=== PATIENT | female | born 1990 | race Caucasian/White ===

== ENCOUNTER 2017-01-12 07:21 | Inpatient (IN) | payer OTHER ==
[2017-01-12] VITALS (8 sets, daily range): BP systolic 99–125; BP diastolic 56–82
[~2017-01-12] VITALS: Ht 152.4 cm; Wt 63.6 kg
[2017-01-12 08:22] LABS: EOSINOPHIL (%) 1.1 % (0-5); EOSINOPHIL COUNT 0.1 K/uL (0-0.3); HEMATOCRIT 33.7 % (36.0-46.0); IMMATURE GRANULOCYTE (%) 0.5 % (0.0-0.7); IMMATURE GRANULOCYTE COUNT 0.1 K/uL; INSTRUMENT ABS NEUTROPHIL CT 6.7 K/uL; LYMPHOCYTE COUNT 2.6 K/uL (1.0-2.8); MCH 25.7 PG (29.0-34.0); MCHC 31.8 G/DL (30.0-36.0); MEAN PLAT.VOLUME 15.1 uM^3 (9.5-12.4); MONOCYTE COUNT 0.6 K/uL (0-0.8); NEUTROPHIL (%) 66.8 % (45-76); NEUTROPHIL COUNT 6.7 K/uL (1.8-6.4); PLATELET COUNT 128 K/uL (156-360); RBC DIS.WIDTH-CV 14.1 % (11.8-14.6); RED BLOOD COUNT 4.16 M/uL (3.80-5.20); WHITE BLOOD COUNT 10.1 K/uL (4.1-10.2)
[2017-01-12 10:41] LABS: AMPHETAMINES QUANT VALUE 0 NG/ML; BARBITUATES QUANT VALUE 0 NG/ML; BENZODIAZEPINES QUANT VALUE 0 NG/ML; BENZODIAZEPINES, URINE SCREEN Negative (200 ng/mL); OPIATES QUANTITATIVE VALUE 0 NG/ML; PHENCYCLIDINE QUANT VALUE 0 NG/ML
[2017-01-13 07:41] VITALS: BP 120/70
[2017-01-13 14:24] LABS: EOSINOPHIL (%) 0.8 % (0-5); EOSINOPHIL COUNT 0.1 K/uL (0-0.3); HEMATOCRIT 34.1 % (36.0-46.0); IMMATURE GRANULOCYTE (%) 0.6 % (0.0-0.7); IMMATURE GRANULOCYTE COUNT 0.1 K/uL; INSTRUMENT ABS NEUTROPHIL CT 5.5 K/uL; LYMPHOCYTE COUNT 2.5 K/uL (1.0-2.8); MCH 26.1 PG (29.0-34.0); MCV 81.8 FL (83-99); MEAN PLAT.VOLUME 14.2 uM^3 (9.5-12.4); MONOCYTE (%) 4.9 % (3-12); MONOCYTE COUNT 0.4 K/uL (0-0.8); NEUTROPHIL (%) 64.2 % (45-76); NEUTROPHIL COUNT 5.5 K/uL (1.8-6.4); PLATELET COUNT 145 K/uL (156-360); RBC DIS.WIDTH-CV 14.2 % (11.8-14.6); RBC DIS.WIDTH-SD 41.2 % (39-53); RED BLOOD COUNT 4.17 M/uL (3.80-5.20); WHITE BLOOD COUNT 8.6 K/uL (4.1-10.2)
[2017-01-13 15:44] VITALS: BP 119/78
== END 2017-01-13 17:45 | disposition home or self-care (01) | DRG 774 ==
LOC: LDRP-OP 07:21 → 2WEST 07:22 → LDRP-OP 02-13 18:40
PROVIDERS: Advanced Practice Midwife
DX: O99.334 Smoking (tobacco) complicating childbirth (principal); Z37.0 Single live birth; O70.0 First degree perineal laceration during delivery; Z3A.39 39 weeks gestation of pregnancy; O98.82 Other maternal infectious and parasitic diseases complicating childbirth; N76.0 Acute vaginitis; E66.3 Overweight; Z68.27 Body mass index [BMI] 27.0-27.9, adult
CPT/HCPCS: 80306 90; 85025; 85025 91; 87480; 87510; 87660; J7120

== ENCOUNTER 2017-06-17 10:54 | Emergency (ER) | payer OTHER ==
[~2017-06-17] VITALS: Ht 152.4 cm; Wt 49.2 kg
[2017-06-17 13:53] LABS: EOSINOPHIL (%) 0.1 % (0-5); HEMATOCRIT 38.1 % (36.0-46.0); IMMATURE GRANULOCYTE (%) 0.3 % (0.0-0.7); INSTRUMENT ABS NEUTROPHIL CT 6.4 K/uL; LYMPHOCYTE COUNT 1.1 K/uL (1.0-2.8); MCH 26.2 PG (29.0-34.0); MCV 81.8 FL (83-99); MEAN PLAT.VOLUME 12.1 uM^3 (9.5-12.4); MONOCYTE (%) 4.8 % (3-12); MONOCYTE COUNT 0.4 K/uL (0-0.8); NEUTROPHIL (%) 80.6 % (45-76); NEUTROPHIL COUNT 6.4 K/uL (1.8-6.4); PLATELET COUNT 246 K/uL (156-360); RBC DIS.WIDTH-CV 16.6 % (11.8-14.6); RBC DIS.WIDTH-SD 49.2 % (39-53); RED BLOOD COUNT 4.66 M/uL (3.80-5.20); WHITE BLOOD COUNT 7.9 K/uL (4.1-10.2)
[2017-06-17 14:05] LABS: CHLORIDE 108 mEq/L (99-109); POTASSIUM 4.5 mEq/L (3.7-5.4); SODIUM 143 mEq/L (136-147)
[2017-06-17 14:07] LABS: GLUCOSE 94 mg/dL (70-99)
[2017-06-17 14:08] LABS: ANION GAP 12 MEQ/L (2-14)
[2017-06-17 14:09] LABS: TOTAL BILIRUBIN 0.9 mg/dL (0.0-1.0)
[2017-06-17 14:10] LABS: ALKALINE PHOSPHATASE 132 IU/L (3-129)
[2017-06-17 14:11] LABS: GFR ESTIMATE (CALCULATED) > 59 mL/min/
[2017-06-17 14:12] LABS: UREA NITROGEN (BUN) 10 mg/dL (9-23)
[2017-06-17] MEDS ORDERED: MOTRIN800 MG PO (15:22)
[2017-06-17] MEDS ORDERED: CLEOCIN300 MG PO (15:22)
[2017-06-17 16:27] VITALS: BP 113/61
== END 2017-06-17 16:29 ==
LOC: EME 10:54
PROVIDERS: Nurse Practitioner Family
DX: L02.413 Cutaneous abscess of right upper limb (principal); L02.414 Cutaneous abscess of left upper limb; F19.10 Other psychoactive substance abuse, uncomplicated; R79.89 Other specified abnormal findings of blood chemistry; Z23 Encounter for immunization; F17.210 Nicotine dependence, cigarettes, uncomplicated; F41.9 Anxiety disorder, unspecified
CPT/HCPCS: 73090; 80053; 85025; 99281; 99285; J1885; J7030